=== PATIENT | male | born 1965 | race Caucasian/White ===

== ENCOUNTER 2017-04-15 11:03 | Emergency (ER) | payer OTHER ==
[~2017-04-15] VITALS: Ht 172.7 cm; Wt 127.0 kg
[2017-04-15] MEDS ORDERED: LISINOPRIL30 MG (11:28)
[2017-04-15] MEDS ORDERED: METFORMIN HCL500 MG (11:29)
[2017-04-15] MEDS ORDERED: AMITRIPTYLINE H50 M3 (11:29)
[2017-04-15] MEDS ORDERED: NAPROSYN500 MG PO (13:35)
== END 2017-04-15 13:56 | disposition home or self-care (01) ==
LOC: ER 11:03
DX: S40.012A Contusion of left shoulder, initial encounter (principal); S40.011A Contusion of right shoulder, initial encounter; J02.8 Acute pharyngitis due to other specified organisms; B97.89 Other viral agents as the cause of diseases classified elsewhere; W23.0XXA Caught, crushed, jammed, or pinched between moving objects, initial encounter; Y93.89 Activity, other specified; Y92.89 Other specified places as the place of occurrence of the external cause; Y99.8 Other external cause status